=== PATIENT | female | born 1975 | race Caucasian/White ===

== ENCOUNTER 2025-02-06 08:13 | Outpatient (OUT) | payer SELFPAY ==
[2025-02-06 08:56] LABS: White Blood Count 5.8 10^3/uL (4.0-11.0)
[2025-02-06 08:57] LABS: Basophils Absolute Auto 0.1 10^3/uL (0.0-0.1); Basophils Percent Auto 0.9 % (0.2-2.0); Eosinophils Absolute Auto 1.1 10^3/uL (0.0-0.7); Eosinophils Percent Auto 18.8 % (0.9-7.0); Hematocrit 41.8 % (36.0-48.0); Hemoglobin 14.3 g/dL (12.0-16.0); Immature Granulocytes Abs Auto 0.01 10^3/uL (0.00-0.03); Immature Granulocytes Pct Auto 0.2 % (0.0-0.5); Lymphocytes Absolute Auto 1.3 10^3/uL (1.2-3.8); Lymphocytes Percent Auto 21.7 % (20.5-60.0); Mean Corpuscular HGB Conc 34.2 g/dL (29.9-35.2); Mean Corpuscular Hemoglobin 31.1 pg (26.7-34.0); Mean Corpuscular Volume 90.9 fL (81.0-99.0); Mean Platelet Volume 10.8 fL (9.5-13.5); Monocytes Absolute Auto 0.5 10^3/uL (0.3-0.8); Monocytes Percent Auto 8.1 % (1.7-12.0); Neutrophils Absolute Auto 2.9 10^3/uL (1.4-6.5); Neutrophils Percent Auto 50.3 % (43.0-75.0); Platelet Count 206 10^3/uL (150-450); Red Cell Distribution Width 12.9 % (11.0-15.0)
[2025-02-06 09:10] LABS: Alanine Aminotransferase 12 U/L (14-59); Albumin Globulin Ratio 1.2; Albumin Level 3.7 g/dL (3.4-5.0); Alkaline Phosphatase 62 U/L (46-116); Anion Gap 11.1; Aspartate Amino Transferase 18 U/L (15-37); BUN Creatinine Ratio 15.1; Bilirubin Total 0.7 mg/dL (0.2-1.0); Calcium 9.4 mg/dL (8.5-10.1); Carbon Dioxide 26.8 mmol/L (21.0-32.0); Chloride 105 mmol/L (98-107); Chol HDL Ratio 2.9; Cholesterol 161 mg/dL (<=200); Estimated GFR (African America >60 (>=60 mL/min/1.73m^2); Estimated GFR (Non-African Ame >60 (>=60 mL/min/1.73m^2); Glucose 84 mg/dL (74-106); HDL Cholesterol 56 mg/dL (40-60); LDL Cholesterol Calculated 89.4 mg/dL; Potassium 3.9 mmol/L (3.5-5.1); Sodium 139 mmol/L (136-145); Total Protein 6.7 g/dL (6.4-8.2); Triglycerides 78 mg/dL (<=150); VLDL CHOLESTEROL 15.6 mg/dL
[2025-02-06 09:33] LABS: Estimated Average Glucose 97 mg/dL
== END 2025-02-06 08:14 | disposition home or self-care (01) ==
LOC: LAB 08:20
PROVIDERS: PCP Physician Assistant; Visit Provider Physician Assistant
DX: Z00.00 Encounter for general adult medical examination without abnormal findings (principal); E11.9 Type 2 diabetes mellitus without complications; E66.01 Morbid (severe) obesity due to excess calories
CPT/HCPCS: 36415; 80053; 80061; 82043; 82570; 83036; 85025

== ENCOUNTER 2025-03-27 13:45 | Outpatient (REF) | payer OTHER, SELFPAY ==
--- OUTSIDE RECORDS SUMMARY | 2025-03-15 08:00 | XMS_ITS | Encounter Summary ---
Author Organization [facility] Address [address] [place] [address] Care Team Providers Care Publications Designer Name Role Phone Trae Garcia MD Primary Care Provider [phone] Trae Garcia MD Unavailable [phone] Reason for Visit * Reason Comments Obesity Weight check. Starte d Adipex 02/26/23.02/26/23 wt - 3412/04/18 wt - 247Today wt - 230 Med Refill Clobetasol, Triamcin olone, Mounjaro concentration issues She was on Wellbutr in for the lack of concentration, she has not been taking it but not sure if she should be, she has just been redirecting herself. She feels like it made her cry when she was on it. Encounter Details Date Type Department Care Team (Late st Contact Info) Description 03/15/2025 8:00 AM EDT Office Visit [facility] [address] [facility] [address] [place] [address] Pina Bernard PA 112 [facility] 110 [place], [place] [id number] Type 2 diabetes mellitus without complication, without long-term current use of insulin (Primary Dx); Hand eczema; Moderate persistent asthma without complication (CMS/HCC); Morbid (severe) obesity due to excess calories (CMS/HCC); BMI 37.0-37.9, adult; Other allergic rhinitis; Fear of flying (CMS/HCC) Social History Tobacco Use Types Packs/Day Years Used Date Smoking Tobacco: Never Smokeless Tobacco: Never Alcohol Use Standard Drinks/Week Comments Yes 1 (1 standard drink = 0.6 oz pure alcohol) Caffeine intake: 2-3 cups per day coffee, soda Humiliation, Afraid, Rape, and Kick questionnair e Answer Date Recorded Within the last year, have y ou been afraid of your partner or ex-partner? No 09/07/2023 Within the last year, have y ou been humiliated or emotionally abused in other ways by your partner or ex-partner? Yes Within the last year, have y ou been kicked, hit, slapped, or otherwise physically hurt by your partner or ex-partner? No 09/07/2023 Within the last year, have y ou been raped or forced to have any kind of sexual activity by your partner or ex-partner? No 09/07/2023 Social Connection and Isolat ion Panel [NHANES] Answer Date Recorded In a typical week, how many times do you talk on the phone with family, friends, or neighbors? More than three times a week 09/07/2023 How often do you get togethe r with friends or relatives? Once a week 09/07/2023 How often do you attend chur or catholic services? More than 4 times per year 09/07/2023 Do you belong to any clubs o r organizations such as judaism groups, unions, fraternal or athletic groups, or school groups? Yes 09/07/2023 How often do you attend meet ings of the clubs or organizations you belong to? More than 4 times per year 09/07/2023 Are you , , di vorced, , never , or living with a partner? 09/07/2023 AUDIT-C Answer Date Recorded Q1: How often do you have a drink containing alc ohol? Monthly or less 09/07/2023 Q2: How many drinks containi ng alcohol do you have on a typical day when you are drinking? 1 or 2 09/07/2023 Q3: How often do you have si x or more drinks on one occasion? Never 09/07/2023 Overall Financial Resource Strain (CARDIA) Answe r Date Recorded How hard is it for you to pa y for the very basics like food, housing, medical care, and heating? Not very hard 09/07/2023 PHQ-2 Answer Date Recorded Patient Health Questionnaire-2 Score 0 03/15/2025 [facility] - Occupational Stress Questionnaire Answer Date Recorded Do you feel stress - tense, restless, nervous, or anxious, or unable to sleep at night because your mind is troubled all the time - these days? To some extent 09/07/2023 Exercise Vital Sign Answer Date Recorde d On average, how many days pe r week do you engage in moderate to strenuous exercise (like a brisk walk)? 2 days 09/07/2023 On average, how many minutes do you engage in exercise at this level? 30 min 09/07/2023 Hunger Vital Sign Answer Date Recorded Within the past 12 months, y ou worried that your food would run out before you got the money to buy more. Never true 09/07/20 23 Within the past 12 months, t he food you bought just didn't last and you didn't have money to get more. Never true 09/07/2023 PRAPARE - Transportation Answer Date Re corded In the past 12 months, has l ack of transportation kept you from medical appointments or from getting medications? No 08/25 In the past 12 months, has l ack of transportation kept you from meetings, work, or from getting things needed for daily living? No 09/07/2023 Housing Stability Vital Sign Answer David e Recorded In the last 12 months, was t here a time when you were not able to pay the mortgage or rent on time? No 09/07/2023 In the last 12 months, how many places have you lived? 1 09/07/2023 In the last 12 months, was t here a time when you did not have a steady place to sleep or slept in a intermediate (including now)? No 09/07/2023 Comments Unknown Sex and Gender Information Value Date Recorded Sex Assigned at Female 09/07/2023 11:06 PM EST Legal Sex Female 7:23 PM EDT Gender Identity Female 09/07/2023 11:06 PM EST Sexual Orientation Straight 09/07/2023 11 :06 PM EST documented as of this encounter Last Filed Vital Signs Vital Sign Reading Time Taken Comments Blood Pressure 108/82 03/15/2025 8:02 AM EDT Pulse 91 03/15/2025 8:02 AM EDT Temperature - - Respiratory Rate 16 03/15/2025 8:02 AM EDT Oxygen Saturation 99% 03/15/2025 8:02 AM EDT Inhaled Oxygen Concentration - - Weight 105 kg (230 lb 12.8 oz) 03/15/2025 8:02 A M EDT Height 167.6 cm (5' 6 ) 03/15/2025 8:02 AM EDT Body Mass Index 37.25 03/15/2025 8:02 AM EDT documented in this encounter Functional Status * Over the past 2 weeks, how often have you been bothered by any of the following problems? Question Answer Date of Assessment Author Little interest or pleasure in doing things Not at all 03/15/2025 7:55 AM EDT Tiffany Villegas LP N Feeling down, depressed, or hopeless Not at all 03/15/2025 7:55 AM EDT Tiffany Villegas LP N Patient Health Questionnaire -2 Score 0 03/15/2025 7:55 AM EDT Tiffany Villegas LP N documented as of this encounter Progress Notes * ANITA Ordonez - 03/15/2025 8:00 AM EDT Images from the original note were not included. HPI Obesity Additional comments: Weight check. Started Adipex 02/26/23. 02/26/23 wt - 341 11/30/24 wt - 247 Today wt - 230 Med Refill Additional comments: Clobetasol, Triamcinolone, Mounjaro concentration issues Additional comments: She was on Wellbutrin for the lack of concentration, she has not been taking it but not sure if she should be, she has just been redirecting herself. She feels like it made her cry when she was on it. Last edited by ANITA Ordonez on 03/15/2025 8:15 AM. Subjective Patient ID: Helena Valencia is a 49 y.o. female who presents for anxiety. Helena is present today for follow up anxiety. She is currently on Alprazolam and is working wellfor her. She pretty much just uses this when she flies. Has been lifting weights. C/o possible sinus infection. C/o wheezing, yellow drainage, ear discomfort, fatigue, cough sometimes productive, sometimes clear and sometimes thicker phlegm. 02/19/2025 went to and was given Cefdinir. Using her nebulizer lately. Feels like sinus symptoms come and go. Gets eczema in several locations. Having a flare up. Planning to do some hiking in March. Current Outpatient Medications on File Prior to Visit Medication Sig Dispense Refill albuterol (2.5 MG/3ML) 0.083% nebulizer solution INHALE 1 VIAL VIA NEBULIZER 3 TIMES A DAY 300 mL 11 albuterol HFA 90 mcg/act inhaler INHALE 2 PUFFS EVERY 4 (FOUR) HOURS IF NEEDED FOR WHEEZING OR SHORTNESS OF BREATH. 18 g 3 ALPRAZolam (Xanax) 0.5 MG tablet Take 1 tablet (0.5 mg) by mouth as needed at bedtime for anxiety for up to 14 days 14 tablet 0 fluticasone (Flonase) 50 MCG/ACT nasal spray ADMINISTER 1-2 SPRAYS INTO EACH NOSTRIL DAILY SHAKE GENTLY. BEFORE FIRST USE, PRIME PUMP. AFTER USE, CLEAN TIP AND REPLACE CAP. 48 mL 2 ipratropium-albuterol (Duo-Neb) 0.5-2.5 mg/3 mL nebulizer solution Take 3 mL by nebulization every 6 (six) hours if needed for wheezing (Patient not taking: Reported on 03/15/2025) 150 mL 5 phentermine (Adipex-P) 37.5 MG tablet Take 1 tablet (37.5 mg) by mouth in the morning. Take before meals. 30 tablet 0 [DISCONTINUED] buPROPion XL (Wellbutrin XL) 150 MG 24 hr tablet TAKE 1 TABLET BY MOUTH ONCE A DAY *DO NOT CRUSH/CHEW/SPLIT* (Patient not taking: Reported on 02/19/2025) 90 tablet 1 [DISCONTINUED] clobetasol propionate (Clobetasol Propionate E) 0.05 % emollient cream Apply topically 2 (two) times a day 60 g 3 [DISCONTINUED] Dyxuakdqkvk-Pbxumyuuu-Wphtdv (Trelegy Ellipta) 200-62.5-25 MCG/ACT aerosol powder Inhale 1 puff Daily 3 each 3 [DISCONTINUED] methylPREDNISolone (Medrol Dospak) 4 MG tablets Follow schedule on package instructions 21 tablet 0 [DISCONTINUED] Mounjaro 15 MG/0.5ML solution auto-injector INJECT 15 MG UNDER THE SKIN ONE TIME PERWEEK 6 mL 3 [DISCONTINUED] triamcinolone (Kenalog) 0.1 % cream Apply topically 2 (two) times a day 80 g 3 No current facility-administered medications on file prior to visit. I have reviewed and reconciled the history and medication list with the patient today. Allergies Allergen Reactions Erythromycin Base Hives Erythromycin Rash Sulfisoxazole Rash Social History Tobacco Use Smoking status: Never Smokeless tobacco: Never Vaping Use Vaping status: Never Used Substance Use Topics Alcohol use: Yes Alcohol/week: 1.0 standard drink of alcohol Types: 1 Standard drinks or equivalent per week Comment: Caffeine intake: 2-3 cups per day coffee, soda Drug use: Never Family History Problem Relation Name Age of Onset Allergies Mother Asthma Mother Past Medical History: Diagnosis Date Allergies Asthma Diabetes mellitus (CMS/HCC) Eczema Gallbladder disease Herpes zoster without complication Past Surgical History: Procedure Laterality Date SECTION, LOW TRANSVERSE 2010 CHOLECYSTECTOMY 2006 Visit Vitals BP 108/82 Pulse 91 Resp 16 Ht 5' 6 Wt 230 lb 12.8 oz SpO2 99% BMI 37.25 kg/m?? Smoking Status Never BSA 2.21 m?? Review of Systems Constitutional: Negative for chills, fatigue and fever. HENT: Positive for congestion, ear pain and rhinorrhea. Respiratory: Positive for cough and wheezing. Negative for shortness of breath. Cardiovascular: Negative for chest pain, palpitations and leg swelling. Gastrointestinal: Positive for constipation and diarrhea. Negative for abdominal pain, nausea and vomiting. Alternates between loose stools and constipation Skin: Positive for rash. Objective Physical Exam Constitutional: General: She is not in acute distress. Appearance: She is well-developed. She is obese. HENT: Head: Normocephalic and atraumatic. Right Ear: Ear canal normal. A middle ear effusion is present. Left Ear: Ear canal normal. A middle ear effusion is present. Nose: Rhinorrhea present. Rhinorrhea is clear. Right Turbinates: Swollen. Left Turbinates: Swollen. Comments: C/o pressure in ethmoid sinuses, though per pt it varies Mouth/Throat: Mouth: Mucous membranes are moist. Pharynx: Posterior oropharyngeal erythema (Moderate) and postnasal drip present. Eyes: General: No scleral icterus. Conjunctiva/sclera: Conjunctivae normal. Cardiovascular: Rate and Rhythm: Normal rate and regular rhythm. Heart sounds: Normal heart sounds. No murmur heard. Pulmonary: Effort: Pulmonary effort is normal. No respiratory distress. Breath sounds: Normal breath sounds. No wheezing, rhonchi or rales. Comments: Occasional dry cough Lymphadenopathy: Cervical: No cervical adenopathy. Skin: General: Skin is warm and dry. Neurological: General: No focal deficit present. Mental Status: She is alert and oriented to person, place, and time. Psychiatric: Mood and Affect: Mood normal. Behavior: Behavior normal. Assessment/Plan Diagnoses and all orders for this visit: Type 2 diabetes mellitus without complication, without long-term current use of insulin - Tirzepatide (Mounjaro) 15 MG/0.5ML solution auto-injector; Inject 15 mg under the skin 1 (one) time per week Refill provided on the above. HgbA1c on 02/06/2025 was 5.0. Will continue to monitor every 6 months. Hand eczema - triamcinolone (Kenalog) 0.1 % cream; Apply topically in the morning and before bedtime. - clobetasol propionate (Clobetasol Propionate E) 0.05 % emollient cream; Apply topically in the morning and before bedtime. Refills provided on the above for pt to continue to use as needed. Moderate persistent asthma without complication (CMS/HCC) - Afqosijuyzw-Qkwpooayf-Rnellk (Trelegy Ellipta) 200-62.5-25 MCG/ACT aerosol powder ; Inhale 1 puffDaily - montelukast (Singulair) 10 MG tablet; Take 1 tablet (10 mg) by mouth at bedtime - triamcinolone acetonide (Kenalog-40) injection 40 mg Provided patient with Kenalog injection today, 40 mg IM, patient tolerated this well. Will have patient start Singulair as prescribed. Advised if any mood changes she is to stop the medication and contact the office. Reviewed how Singulair works in the body. Morbid (severe) obesity due to excess calories (CMS/HCC) Patient hast lost 111 pounds over the last 2 years. She is doing very well and feels like her clothes continue to fit better. Has incorporated weight lifting. Continue to aim for healthy diet. BMI 37.0-37.9, adult See above. Other allergic rhinitis Continue Flonase as prescribed. If no improvement with the Kenalog and Singulair by Wednesday, pt can contact office and I will send in an antibiotic for her to start. Fear of flying (CMS/HCC) She can continue with Xanax as needed. OARRS report generated and reviewed. Follow up in about 3 months (around 06/15/2025) for Medication Follow Up. documented in this encounter Plan of Treatment Upcoming Encounters Date Type Department Care Team (Late st Contact Info) Description 04/02/2026 9:00 AM EDT Office Visit [facility] [address] [facility] [place] [address] Guero Moore, DO [address] [facility] [place] [address] documented as of this encounter Visit Diagnoses Diagnosis Type 2 diabetes mellitus without complication, without long-term current use of insulin- Primary Hand eczema Contact dermatitis and other eczema, due to unspecified cause Moderate persistent asthma without complication (CMS/HCC) Morbid (severe) obesity due to excess calories (CMS/HCC) BMI 37.0-37.9, adult Other allergic rhinitis Fear of flying (CMS/HCC) documented in this encounter Administered Medications Inactive Administered Medications - up to 3 most recent administrations Medication Order MAR Action Action Date Dose Rate Site triamcinolone acetonide (Kenalog-40) injection 40 mg 40 mg, Intramuscular, Once, On Rachel 03/15/25 at 0845, For 1 doseIndications:Moderate persistent asthma without complication (CMS/HCC) Given 03/15/2025 8:44 AM EDT 40 mg Left Ventrogluteal documented in this encounter Care Teams Publications Designer Relationship Specialty Start Date End Date Trae Garcia MD [address] [facility] [address] [place] [address] PCP - General Internal Medicine 03/24/23 Trae Garcia MD [address] [place] [id number] PCP - Medical [employer] [employer] 10/25/23 10/24/99 documented as of this encounter
--- OUTSIDE RECORDS SUMMARY | 2025-03-27 09:00 | XMS_ITS | Encounter Summary ---
Author Organization [facility] Address [address] [place] [address] Care Team Providers Care Vice President Of Human Resources Name Role Phone Trae Garcia MD Primary Care Provider [phone] Trae Garcia MD Unavailable [phone] Reason for Visit * Reason Comments Well Women Visit Encounter Details Date Type Department Care Team (Late st Contact Info) Description 03/27/2025 9:00 AM EDT Office Visit [facility] [address] [place] [address] Guero Moore DO [address] [place], [facility]11 Well woman exam with routine gynecological exam; Encounter for screening mammogram for malignant neoplasm of breast Social History Tobacco Use Types Packs/Day Years [...] How often do you attend chur or synagogue services? More than 4 times per year 09/07/2023 Do you belong to any clubs o r organizations such as denominational groups, unions, fraternal or athletic groups, or [...] Recorded Patient Health Questionnaire-2 Score 0 03/15/2025 [facility] Health - Occupational Stress [...] place to sleep or slept in a long term (including now)? No 09/07/2023 Comments Unknown Sex and Gender Information Value Date Recorded Sex Assigned at Female 09/07/2023 11:06 PM EST Legal Sex Female 7:23 PM EDT Gender Identity Female 09/07/2023 11:06 PM EST Sexual Orientation Straight 09/07/2023 11 :06 PM EST documented as of this encounter Last Filed Vital Signs Vital Sign Reading Time Taken Comments Blood Pressure 130/80 03/27/2025 9:08 AM EDT Pulse - - Temperature - - Respiratory Rate - - Oxygen Saturation - - Inhaled Oxygen Concentration - - Weight 105 kg (232 lb) 03/27/2025 9:08 AM EDT Height - - Body Mass Index 37.45 03/15/2025 8:02 AM EDT documented in this encounter Progress Notes * Pina Armstrong LPN - 03/27/2025 9:00 AM EDT Reason for Appointment: Patient ID: Helena Valencia is a 49 y.o. female who presents for Well Women Visit Patient presents today for Annual Exam. MEDICATIONS Current Outpatient Medications Medication Instructions albuterol (2.5 MG/3ML) 0.083% nebulizer solution INHALE 1 VIAL VIA NEBULIZER 3 TIMES A DAY albuterol HFA 90 mcg/act inhaler 2 puffs, Inhalation, Every 4 hours PRN ALPRAZolam (XANAX) 0.5 mg, Oral, Nightly PRN clobetasol propionate (Clobetasol Propionate E) 0.05 % emollient cream Topical, 2 times daily fluticasone (Flonase) 50 MCG/ACT nasal spray 1-2 sprays, Each Nostril, Daily, Shake gently. Before first use, prime pump. After use, clean tip and replace cap. Wrqyfskqady-Vjziwejqq-Jbxcrb (Trelegy Ellipta) 200-62.5-25 MCG/ACT aerosol powder 1 puff, Inhalation, Daily montelukast (SINGULAIR) 10 mg, Oral, Nightly Mounjaro 15 mg, Subcutaneous, Weekly phentermine (ADIPEX-P) 37.5 mg, Oral, Daily before breakfast triamcinolone (Kenalog) 0.1 % cream Topical, 2 times daily ALLERGIES Allergies Allergen Reactions Erythromycin Base Hives Erythromycin Rash Sulfisoxazole Rash PROBLEMS Active Ambulatory Problems Diagnosis Date Noted Depression ([facility]) 03/08/2023 Generalized anxiety disorder ([facility]) 03/08/2023 Hand eczema 03/08/2023 Moderate persistent asthma without complication ([facility]) 03/08/2023 Other allergic rhinitis 03/08/2023 Type 2 diabetes mellitus without complication, without long-term current use of insulin 03/08/2023 Morbid (severe) obesity due to excess calories ([facility]) 12/12/2021 Myalgia 02/22/2024 Fear of flying ([facility] 04/21/2024 Shortness of breath 09/12/2024 Ulnar tunnel syndrome, right 09/25/2024 BMI 37.0-37.9, adult 03/15/2025 Resolved Ambulatory Problems Diagnosis Date Noted Morbidly obese ([facility]) 03/08/2023 Sinusitis 03/08/2023 Mild persistent asthma without complication ([facility]) 11/05/2023 BMI 40.0-44.9, adult ([facility]) 01/18/2024 Asthma 04/21/2024 Acute maxillary sinusitis, unspecified 09/12/2024 Bronchitis 09/12/2024 Viral URI with cough 09/12/2024 Past Medical History: Diagnosis Date Allergies Diabetes mellitus (CMS/HCC) Eczema Gallbladder disease Herpes zoster without complication HISTORY PAST MEDICAL HISTORY SOCIAL HISTORY Past Medical History: Diagnosis Date Allergies Asthma Diabetes mellitus (CMS/HCC) Eczema Gallbladder disease Herpes zoster without complication Social History Tobacco Use Smoking status: Never Smokeless tobacco: Never Vaping Use Vaping status: Never Used Substance Use Topics Alcohol use: Yes Alcohol/week: 1.0 standard drink of alcohol Types: 1 Standard drinks or equivalent per week Comment: Caffeine intake: 2-3 cups per day coffee, soda Drug use: Never FAMILY HISTORY Family History Problem Relation Name Age of Onset Allergies Mother Asthma Mother SURGICAL HISTORY Past Surgical History: Procedure Laterality Date SECTION, LOW TRANSVERSE 2011 CHOLECYSTECTOMY 2006 REVIEW OF SYSTEMS Review of Systems: Review of Systems Constitutional: Negative. HENT: Negative. Eyes: Negative. Respiratory: Negative. Cardiovascular: Negative. Gastrointestinal: Negative. Genitourinary: Negative. Musculoskeletal: Negative. Skin: Negative. Neurological: Negative. All other systems reviewed and are negative. Hematological: Negative. Endocrine: Negative. Allergic/Immunologic: Negative. OBJECTIVE Objective: Physical Exam Constitutional: Appearance: Normal appearance. She is well-developed. Genitourinary: Vulva normal. Breasts: Breasts are soft. Right: Normal. Left: Normal. Cardiovascular: Rate and Rhythm: Normal rate and regular rhythm. Pulmonary: Effort: Pulmonary effort is normal. Breath sounds: Normal breath sounds. Abdominal: General: Bowel sounds are normal. There is no distension. Palpations: Abdomen is soft. Tenderness: There is no abdominal tenderness. There is no guarding or rebound. Musculoskeletal: General: No swelling. Normal range of motion. Right lower leg: No edema. Left lower leg: No edema. Neurological: Mental Status: She is alert and oriented to person, place, and time. Skin: General: Skin is warm and dry. Psychiatric: Mood and Affect: Mood normal. Behavior: Behavior normal. Vitals and nursing note reviewed. Exam conducted with a inventory control associate present. Vitals: Estimated body mass index is 37.45 kg/m?? as calculated from the following: Height as of 03/15/25: 5' 6 . Weight as of this encounter: 232 lb. BP: 130/80 No LMP recorded. ASSESSMENT & PLAN ICD-10-CM 1. Well woman exam with routine gynecological exam Z01.419 THIN PREP TIS PAP AND HR HPV DNA 2. Encounter for screening mammogram for malignant neoplasm of breast Z12.31 Annual: Patient presents today for an annual exam. Patient states she is doing well and has no complaints. Pap was obtained without difficulty and patient given mammogram order to have scheduled/obtained. Ptto return for IUD removal and insertion. No orders of the defined types were placed in this encounter. Follow Up: Patient is to return in one year for annual unless needed otherwise. Documented by Pina Armstrong LPN on behalf of: Guero Moore DO documented in this encounter Plan of Treatment Upcoming Encounters Date Type Department Care Team (Late st Contact Info) Description 04/02/2026 9:00 AM EDT Office Visit [facility] [address] [facility] [id number] Guero Moore DO [address] [place] [address] Scheduled Orders Name Type Priority Associated Diagnoses Orde r Schedule THIN PREP TIS PAP AND HR HPV DNA Pathology and Cytology Routine Well woman exam with routine gynecological exam Ordered: 03/27/2025 documented as of this encounter Visit Diagnoses Diagnosis Well woman exam with routine gynecological exam Routine gynecological examination Encounter for screening mammogram for malignant neoplasm of breast documented in this encounter Care Teams Vice President Of Human Resources Relationship Specialty Start Date End Date Trae Garcia MD [address] [facility] [address] [place] [address] PCP - General Internal Medicine 03/24/23 Trae Garcia MD [address] [facility] [address] [place] [address] PCP - Medical [place] [employer] 10/25/23 10/24/99 documented as of this encounter
--- OUTSIDE RECORDS SUMMARY | 2025-03-27 13:47 | XMS_ITS | Encounter Summary ---
Author Organization [facility] Address [address] [place] [address] Care Team Providers Care Testing And Regulating Chief Name Role Phone Trae Garcia MD Primary Care Provider [phone] Trae Garcia MD Unavailable [phone] Encounter Details Date Type Department Care Team (Late st Contact Info) Description 08/07/2024 Abstract [facility] [address] [facility] 110 [place] [id number] Trae Garcia MD [address] [facility] 110 [place], [place] [id number] Social History Tobacco Use Types Packs/Day Years [...] 09/07/2023 How often do you attend chur ch or gnosticism services? More than 4 times per year 09/07/2023 Do you belong to any clubs o r organizations such as mormon groups, unions, fraternal or athletic groups, or [...] care, and heating? Not very hard 09/07/2023 [facility] - Occupational Stress [...] place to sleep or slept in a halfway (including now)? No 09/07/2023 Comments Unknown Sex and Gender Information Value Date Recorded Sex Assigned at Female 09/07/2023 11:06 PM EST Legal Sex Female 7:23 PM EDT Gender Identity Female 09/07/2023 11:06 PM EST Sexual Orientation Straight 09/07/2023 11 :06 PM EST documented as of this encounter Plan of Treatment Upcoming Encounters Date Type Department Care Team (Late st Contact Info) Description 04/02/2026 9:00 AM EDT Office Visit [facility] [address] [address] Guero Moore, DO [address] [facility] [place] [address] documented as of this encounter Visit Diagnoses Not on filedocumented in this encounter Care Teams Testing And Regulating Chief Relationship Specialty Start Date End Date Trae Garcia MD [address] [facility] [address] [place] [address] PCP - General Internal Medicine 03/24/23 Trae Garcia MD [address] [facility] [address] [place] [id number] PCP - Medical [place] [employer] 10/25/23 10/24/99 documented as of this encounter
--- OUTSIDE RECORDS SUMMARY | 2025-03-27 13:47 | XMS_ITS | Encounter Summary ---
Author Organization [facility] Address [address] [place] [address] Care Team Providers Care Partition Assembler Name Role Phone Trae Garcia MD Primary Care Provider [phone] Trae Garcia MD Unavailable [phone] Encounter Details Date Type Department Care Team (Late st Contact Info) Description 07/24/2024 Abstract [facility] [address] [facility] 110 [place] [address] Trae Garcia MD [address] [facility] 110 [place], [place] [id number] Social History Tobacco Use Types Packs/Day Years [...] often do you attend chur ch or shinto services? More than 4 times per year 09/07/2023 Do you belong to any clubs o r organizations such as mandaeism groups, unions, fraternal or athletic groups, or [...] care, and heating? Not very hard 09/07/2023 [facility] - Occupational [...] place to sleep or slept in a fci (including now)? No 09/07/2023 Comments Unknown Sex [...] EDT Office Visit [facility] [address] [facility] [place] [address] Guero Moore, DO [address] [facility] [place] [address] documented as of this encounter Visit Diagnoses Not on filedocumented in this encounter Care Teams Partition Assembler Relationship Specialty Start Date End Date Trae Garcia MD [address] [facility] [address] [place] [address] PCP - General Internal Medicine 03/24/23 Trae Garcia MD [address] [facility] [address] [place] [id number] PCP - Medical [place] [employer] 10/25/23 10/24/99 documented as of this encounter
--- OUTSIDE RECORDS SUMMARY | 2025-03-27 13:47 | XMS_ITS | Encounter Summary ---
Author Organization [facility] Address [address] [place] [address] Care Team Providers Care Soccer Player Name Role Phone Trae Garcia MD Primary Care Provider Trae Garcia MD Unavailable [phone] Encounter Details Date Type Department Care Team (Late st Contact Info) Description 07/24/2024 Abstract [facility] [address] [facility] 110 [place] [id number] Trae Garcia MD [address] [facility] 110 [place], [place] [id number] Social History Tobacco Use Types Packs/Day Years [...] often do you attend chur ch or confucianist services? More than 4 times per year 09/07/2023 Do you belong to any clubs o r organizations such as sabianism groups, unions, fraternal or athletic groups, or [...] care, and heating? Not very hard 09/07/2023 [facility] - Occupational [...] place to sleep or slept in a correction (including now)? No 09/07/2023 Comments Unknown Sex [...] EDT Office Visit [facility] [address] [facility] [place] [address] Guero Moore, DO [address] [facility] [place] [address] documented as of this encounter Visit Diagnoses Not on filedocumented in this encounter Care Teams Soccer Player Relationship Specialty Start Date End Date Trae Garcia MD [address] [facility] [address] [place] [address] PCP - General Internal Medicine 03/24/23 Trae Garcia MD [address] [facility] [address] [place] [id number] PCP - Medical [place] [employer] 10/25/23 10/24/99 documented as of this encounter
--- OUTSIDE RECORDS SUMMARY | 2025-03-27 13:48 | XMS_ITS | Clinical Summary ---
Author Organization [facility] Healthcare Address [address] [place] [address] Care Team Providers Care Helmet Hat Brim Cutter Name Role Phone Trae Garcia MD Primary Care Provider [phone] Trae Garcia MD Unavailable [phone] Allergies Active Allergy Reactions Criticality Noted Date Comments Erythromycin Rash Low 03/08/2023 Erythromycin Base Hives 03/12/2024 Sulfisoxazole Rash Low 03/08/2023 Medications fluticasone (Flonase) 50 MCG/ACT nasal sprayIndications: Other allergic rhinitis ADMINISTER 1-2 SPRAYS INTO EACH NOSTRIL DAILY SHAKE GENTLY. BEFORE FIRST USE, PRIME PUMP. AFTER USE, CLEAN TIP AND REPLACE CAP. 48 mL 2 024 2024 Active ALPRAZolam (Xanax) 0.5 MG tabletIndications :Fear of flying ([facility]),General ized anxiety disorder ([facility]) Take 1 tablet (0.5 mg) by mouth as needed at bedtime for anxiety for up to 14 days 14 tablet 025 Active albuterol (2.5 MG/3ML) 0.083% nebulizer solutionIndicatio ns:Persistent asthma with acute exacerbation, unspecified asthma severity ([facility]) INHALE 1 VIAL VIA NEBULIZER 3 TIMES A DAY 300 mL 11 025 Active albuterol HFA 90 mcg/act inhalerIndication s:Mild persistent asthma without complication ([facility]) INHALE 2 PUFFS EVERY 4 (FOUR) HOURS IF NEEDED FOR WHEEZING OR SHORTNESS OF BREATH. 18 g 3 025 Active phentermine (Adipex-P) 37.5 MG tabletIndications :Morbid (severe) obesity due to excess calories (CMS/HCC),Type 2 diabetes mellitus without complication, without long-term current use of insulin Take 1 tablet (37.5 mg) by mouth in the morning. Take before meals. 30 tablet 025 2024 Active triamcinolone (Kenalog) 0.1 % creamIndications: Hand eczema Apply topically in the morning and before bedtime. 80 g 3 025 Active clobetasol propionate (Clobetasol Propionate E) 0.05 % emollient creamIndications: Hand eczema Apply topically in the morning and before bedtime. 60 g 025 Active Fluticasone-Umecl idin-Vilant (Trelegy Ellipta) 200-62.5-25 MCG/ACT aerosol powderIndications :Moderate persistent asthma without complication (CMS/HCC) Inhale 1 puff Daily 3 each 3 025 Active montelukast (Singulair) 10 MG tabletIndications :Moderate persistent asthma without complication (CMS/HCC) Take 1 tablet (10 mg) by mouth at bedtime 90 tablet 025 Active Tirzepatide (Mounjaro) 15 MG/0.5ML solution auto-injectorIndi cations:Type 2 diabetes mellitus without complication, without long-term current use of insulin Inject 15 mg under the skin 1 (one) time per week 6 mL 3 025 Active ipratropium-albut charles (Duo-Neb) 0.5-2.5 mg/3 mL nebulizer solutionIndicatio ns:Moderate persistent asthma without complication (CMS/HCC) Take 3 mL by nebulization every 6 (six) hours if needed for wheezing 150 mL 5 024 2024 Discontinued Fluticasone-Umecl idin-Vilant (Trelegy Ellipta) 200-62.5-25 MCG/ACT aerosol powderIndications :Moderate persistent asthma without complication (CMS/HCC) Inhale 1 puff Daily 3 each 3 024 2024 Discontinued(R eorder) buPROPion XL (Wellbutrin XL) 150 MG 24 hr tabletIndications :Generalized anxiety disorder (CMS/HCC) TAKE 1 TABLET BY MOUTH ONCE A DAY *DO NOT CRUSH/CHEW/SPLI T* 90 tablet 1 024 2024 Discontinued(S renetta effects) Mounjaro 15 MG/0.5ML solution auto-injectorIndi cations:Type 2 diabetes mellitus without complication, without long-term current use of insulin INJECT 15 MG UNDER THE SKIN ONE TIME PER WEEK 6 mL 3 2024 Discontinued(R eorder) clobetasol propionate (Clobetasol Propionate E) 0.05 % emollient creamIndications: Hand eczema Apply topically 2 (two) times a day 60 g 3 2024 Discontinued(R eorder) triamcinolone (Kenalog) 0.1 % creamIndications: Hand eczema Apply topically 2 (two) times a day 80 g 3 2024 Discontinued(R eorder) phentermine (Adipex-P) 37.5 MG tabletIndications :Morbid (severe) obesity due to excess calories (CMS/HCC),Type 2 diabetes mellitus without complication, without long-term current use of insulin Take 1 tablet (37.5 mg) by mouth in the morning. Take before meals. 30 tablet 2024 Discontinued(R eorder) methylPREDNISolon e (Medrol Dospak) 4 MG tabletsIndication s:Mild persistent asthma, unspecified whether complicated (CMS/HCC) Follow schedule on package instructions 21 tablet 2024 Discontinued(T herapy completed) cefdinir (Omnicef) 300 MG capsuleIndication s:Acute rhinosinusitis Take 1 capsule (300 mg) by mouth every 12 (twelve) hours for 10 days 20 capsule 2024 phentermine (Adipex-P) 37.5 MG tabletIndications :Morbid (severe) obesity due to excess calories (CMS/HCC),Type 2 diabetes mellitus without complication, without long-term current use of insulin Take 1 tablet (37.5 mg) by mouth in the morning. Take before meals. 30 tablet 025 2024 Discontinued(R eorder) Tirzepatide (Mounjaro) 15 MG/0.5ML solution auto-injectorIndi cations:Type 2 diabetes mellitus without complication, without long-term current use of insulin Inject 15 mg under the skin 1 (one) time per week 6 mL 3 025 2024 Discontinued(R eorder) Hospital, Clinic, or Other Facility Administered Medication Ordered Dose Route Frequency Start Date End Date Status triamcinolone acetonide (Kenalog-40) injection 40 mgIndications:Moderate persistent asthma without complication (CMS/HCC) 40 mg IM Once 03/15/2025 03/15/2025 En ded Active Problems Problem Noted Date Diagnosed Date BMI 37.0-37.9, adult 03/15/2025 Ulnar tunnel syndrome, right 09/25/2024 Shortness of breath 09/12/2024 Fear of flying 04/21/2024 Myalgia 02/22/2024 Depression 03/08/2023 Generalized anxiety disorder 03/08/2023 Hand eczema 03/08/2023 Moderate persistent asthma without complication 03/08/2023 Other allergic rhinitis 03/08/2023 Type 2 diabetes mellitus wit hout complication, without long-term current use of insulin 03/08/2023 Morbid (severe) obesity due to excess calories 0 12/12/2021 Resolved Problems Problem Noted Date Diagnosed Date Resolved Date Acute maxillary sinusitis, unspecified 09/12/2024 09/25/2024 Bronchitis 09/12/2024 09/25/2024 Viral URI with cough 09/12/2024 024 Asthma 04/21/2024 04/21/2024 BMI 40.0-44.9, adult 01/18/2024 025 Mild persistent asthma without complication 11/05/2023 04/21/2024 Morbidly obese 03/08/2023 09/08/2023 Sinusitis 03/08/2023 09/08/2023 Encounters Date Type Department Care Team Description 03/27/2025 9:00 AM EDT Office Visit [facility] [address] [place] [address] [place] [address] Guero Moore, Well woman exam with routine gynecological exam; Encounter for screening mammogram for malignant neoplasm of breast 03/27/2025 Bamboo flowsheet [facility] [address] [place] [address] [place] [address] Guero Moore DO 03/20/2025 Refill [facility] [address] [facility] [address] [place] [address] Makayla Houston MA Type 2 diabetes mellitus without complication, without long-term current use of insulin 03/15/2025 8:00 AM EDT Office Visit [facility] [address] [facility] [address] [place] [address] Pina Bernard PA Type 2 diabetes mellitus without complication, without long-term current use of insulin (Primary Dx); Hand eczema; Moderate persistent asthma without complication (CMS/HCC); Morbid (severe) obesity due to excess calories (CMS/HCC); BMI 37.0-37.9, adult; Other allergic rhinitis; Fear of flying (CMS/HCC) 03/15/2025 Bamboo flowsheet [facility] [address] [facility] [address] [place] [address] Pina Bernard PA 03/15/2025 Travel 03/06/2025 Refill [facility] [address] [facility] [address] [place] [address] Pina Bernard PA Morbid (severe) obesity due to excess calories (CMS/HCC); Type 2 diabetes mellitus without complication, without long-term current use of insulin 03/06/2025 Abstract [facility] [address] [facility] [address] [place] [address] Trae Garcia MD 03/05/2025 Telephone [facility] [address] [facility] [address] [place] [address] Tiffany Villegas LPN 03/05/2025 [address] [facility] [address] [facility] [address] [place] [address] Pina Bernard PA Morbid (severe) obesity due to excess calories (CMS/HCC); Type 2 diabetes mellitus without complication, without long-term current use of insulin 02/19/2025 3:30 PM EDT Office Visit [facility] [address] [place] [phone] Annemarie Rosales, AKOSUA Acute rhinosinusitis (Primary Dx); Mild persistent asthma, unspecified whether complicated (CMS/HCC) 02/19/2025 Bamboo flowsheet [facility] [address] [place] [phone] Annemarie Rosales, WINDOW REPAIRER 02/19/2025 Travel 02/16/2025 Refill [facility] [address] [place] [address] Pina Bernard PA Mild persistent asthma without complication (CMS/HCC) 02/16/2025 Refill [facility] [address] [place] [address] Trae Garcia MD Persistent asthma with acute exacerbation, unspecified asthma severity (CMS/HCC) 02/06/2025 Abstract [facility] [address] [place] [address] Trae Garcia MD 02/06/2025 Abstract [facility] [address] [place] [address] Trae Garcia MD 02/06/2025 Results Follow-Up [facility] [address] [place] [address] Pina Bernard PA 02/06/2025 Clinisync Result Encounter [facility] External Department Unsolicited Pina Bernard PA 02/02/2025 Refill [facility] [address] [place] [address] Tiffany Villegas LPN Morbid (severe) obesity due to excess calories (CMS/HCC); Type 2 diabetes mellitus without complication, without long-term current use of insulin 01/08/2025 Telephone [facility] [address] [place] [address] Pina Bernard PA 01/03/2025 Refill [facility] [address] [place] [address] Christen Perez LPN Morbid (severe) obesity due to excess calories (CMS/HCC); Type 2 diabetes mellitus without complication, without long-term current use of insulin (CMS/HCC) from Last 3 Months Immunizations Immunization Administration Dates Next Due Influenza, Injectable, MDCK, preservative free 08/15/2024 Influenza, injectable, quadr ivalent, preservative free 06/29/2023,06/30/2022,07/22/2021 Influenza, seasonal, intrade rmal, preservative free 08/05/2016,09/13/2014 Pneumococcal Polysaccharide PPSV23 10/27/2021 Tdap 09/29/2014 Family History Medical History Relation Name Comments Allergies Mother Asthma Mother Relation Name Status Comments Father Alive Mother Alive Other Alive spouse Paternal Grandfather Alive Paternal Grandmother Alive Sibling Alive Son Alive 1 son Social History Tobacco Use Types Packs/Day Years Used Date Smoking Tobacco: Never Smokeless Tobacco: Never Tobacco Cessation:Counseling Given: Not Answered Alcohol Use Standard Drinks/Week Comments Yes 1 [...] often do you attend chur ch or mormon services? More than 4 times per year 09/07/2023 Do you belong to any clubs o r organizations such as zoroastrianism groups, unions, fraternal or athletic groups, or [...] Recorded Patient Health Questionnaire-2 Score 0 03/15/2025 [facility] - [...] place to sleep or slept in a jail (including now)? No 09/07/2023 Comments Unknown Sex and Gender Information Value Date Recorded Sex Assigned at Female 09/07/2023 11:06 PM EST Legal Sex Female 7:23 PM EDT Gender Identity Female 09/07/2023 11:06 PM EST Sexual Orientation Straight 09/07/2023 11 :06 PM EST Last Filed Vital Signs Vital Sign Reading Time Taken Comments Blood Pressure 130/80 03/27/2025 9:08 AM EDT Pulse 91 03/15/2025 8:02 AM EDT Temperature 36.6 C (97.8 F) 02/19/2025 3:44 PM EDT Respiratory Rate 16 03/15/2025 8:02 AM EDT Oxygen Saturation 99% 03/15/2025 8:02 AM EDT Inhaled Oxygen Concentration - - Weight 105 kg (232 lb) 03/27/2025 9:08 AM EDT Height 167.6 cm (5' 6 ) 03/15/2025 8:02 AM EDT Body Mass Index 37.45 03/15/2025 8:02 AM EDT Plan of Treatment Upcoming Encounters Date Type Department Care Team (Late st Contact Info) Description 04/02/2026 9:00 AM EDT Office Visit [facility] [address] [facility] [place] [address] Guero Moore, DO [address] [place], [place] [id number] Health Maintenance Due Date Last Done Comments CT Colonography 1977 Colonoscopy 1977 Colorectal Cancer Screening 1977 FIT-DNA 1977 FIT 1977 FOBT 1975 Sigmoidoscopy 1977 Diabetes: Retinopathy Screening 1987 Pap Smear 1998 Cervical Cancer Screening 2007 HPV/Cotest 2007 Diabetes: Hemoglobin A1C 05/08/2025 025, 04/21/2024, 09/08/2023, Additional history exists Mammogram 10/20/2025 10/20/2024 Diabetes: Urine Protein Screening 03/15/2026 03/15/2025, 12/20/2023, 11/25/2022, Additional history exists Influenza Vaccine Completed 08/15/2024, , 06/30/2022, Additional history exists Procedures Procedure Name Priority Date/Time Associated Diagnosis Comments MICROALBUMIN / CREATININE URINE RATIO Routine 03/15/2025 1:42 PM EDT Type 2 diabetes mellitus without complication, without long-term current use of insulin MLR HEMOGLOBIN A1C Routine 02/06/2025 8: 20 AM EDT ALL LIPID PROFILE (FASTING) Routine 02/06/2025 8:20 AM EDT [facility] CMP (CMP) (FOR REMOTE [facility] USE) Routine 02/06/2025 8:20 AM EDT ALL CBC WITH AUTO DIFF Routine 8:20 AM EDT BI MAMMOGRAM SCREENING TOMOSYNTHESIS BILATERAL 10/20/2024 2:47 PM EST POCT GLYCOSYLATED HEMOGLOBIN (HGB A1C) Routine 04/21/2024 8:54 AM EDT Type 2 diabetes mellitus without complication, without long-term current use of insulin ([facility]) from Last 3 Months or Most Recently Relevant to Health Maintenance Results * (ABNORMAL) Microalbumin / creatinine, urine ratio (03/15/2025 1:42 PM EDT) CREATININE, RANDOM URINE 284(H) 20 - 275 mg/dL [facility] ALBUMIN, URINE 2.5 See Note: mg/dL [facility] Comment: Reference Range: Reference Range Not established ALBUMIN/CREATININE RATIO, RANDOM URINE 9 <30 mg/g creat [facility] Comment: The ADA defines abnormalities in albumin excretion as follows: Albuminuria Category Result (mg/g creatinine) Normal to Mildly increased <30 Moderately increased 30-299 Severely increased > OR = 300 The ADA recommends that at least two of three specimens collected within a 3-6 month period be abnormal before considering a patient to be within a diagnostic category. Urine Urine specimen obtained by clean catch procedure / Unknown 03/15/2025 1:42 PM EDT 03/15/2025 1:43 PM EDT Narrative Resulting Agency Comment Performing Organization Information Site ID: QPT Name: [employer] [facility] Address: [address] [place] [address], [address] [place] [id number] Director: Slade Payan MD Pina HOWARD LAB URINE ORDERABLES Final Res ult [facility] * MLR HEMOGLOBIN A1C (02/06/2025 8:20 AM EDT) Pathologist [facility] GLYCOHEMOGLOBIN A1C 5.0 4.5 - 6.2 % [facility] Comment: ADA RECOMMENDED LIMIT 4.0 - 6.0 ADA THERAPEUTIC TARGET < 7.0 ACTION SUGGESTED > 7.0 ESTIMATED AVERAGE GLUCOSE 97 mg/dL [facility] 02/06/2025 8:20 AM EDT 02/06/2025 8:47 AM EDT Narrative [facility] - 02/06/2025 9:34 AM EDT Pina HOWARD [facility] Final Result Performing Organization Address City/[facility]/ZIP Co de Phone Number CLINISYNC TB * (ABNORMAL) [facility] CMP (CMP) (FOR REMOTE [facility] USE) (02/06/2025 8:20 AM EDT) Pathologist [facility] SODIUM 139 136 - 145 mmol/L TB POTASSIUM 3.9 3.5 - 5.1 mmol/L [facility]H CHLORIDE 105 98 - 107 mmol/L TB[facility] CARBON DIOXIDE 26.8 21.0 - 32.0 mmol/L [facility] ANION GAP 11.1 [facility] GLUCOSE 84 74 - 106 mg/dL [facility] BLOOD UREA NITROGEN 13.0 7.0 - 18.0 mg/dL [facility] CREATININE 0.86 0.55 - 1.02 mg/dL TBH TBH EGFR-AF SCOTTISH >60 >=60 mL/min/1. 73m 2 TBH TBH EGFR-NON AF SCOTTISH >60 >=60 mL/min/1. 73m 2 TBH BUN CREATININE RATIO 15.1 TBH CALCIUM 9.4 8.5 - 10.1 mg/dL [facility] BILIRUBIN TOTAL 0.7 0.2 - 1.0 mg/dL [facility] ASPARTATE AMINO TRANSFERASE 18 15 - 37 U/L TBH ALANINE AMINOTRANSFERASE 12(L) 14 - 59 U/L [facility] ALKALINE PHOSPHATASE 62 46 - 116 U/L [facility] TOTAL PROTEIN 6.7 6.4 - 8.2 g/dL [facility] ALBUMIN LEVEL 3.7 3.4 - 5.0 g/dL [facility] GLOBULIN 3.0 g/dL [facility]H ALBUMIN GLOBULIN RATIO 1.2 [facility] 02/06/2025 8:20 AM EDT 02/06/2025 8:47 AM EDT Narrative CLINISYNC - 02/06/2025 9:11 AM EDT us Pina HOWARD CLINIS[facility] Final Result [facility] * ALL LIPID PROFILE (FASTING) (02/06/2025 8:20 AM EDT) TRIGLYCERIDES 78 <=150 mg/dL TB[facility] CHOLESTEROL 161 <=200 mg/dL TBH HDL CHOLESTEROL 56 40 - 60 mg/dL TB Comment: > or =60 mg/dl - LOW CARDIOVASCULAR RISK <40 mg/dl - HIGH CARDIOVASCULAR RISK LDL CHOLESTEROL CALCULATED 89.4 mg/dL TB Comment: <100 mg/dl OPTIMAL 100-129 mg/dl NEAR OR ABOVE OPTIMAL 130-159 mg/dl BORDERLINE HIGH 160-189 mg/dl HIGH >190 mg/dl VERY HIGH VLDL CHOLESTEROL 15.6 mg/dL TBH CHOL HDL RATIO 2.9 TBH Comment: 3.3 - 4.4 LOW RISK 4.4 - 7.1 AVERAGE RISK 7.1 - 11.0 MODERATE RISK >11.0 HIGH RISK 02/06/2025 8:20 AM EDT 02/06/2025 8:47 AM EDT Narrative CLINISYNC - 02/06/2025 9:11 AM EDT us Pina HOWARD CLINISYNC Final Result [facility] * (ABNORMAL) ALL CBC WITH AUTO DIFF (02/06/2025 8:20 AM EDT) TBH WBC 5.8 4.0 - 11.0 10 3/uL TBH TBH RBC 4.60 4.20 - 5.40 10 6/uL TBH TBH HGB 14.3 12.0 - 16.0 g/dL TBH TBH HCT 41.8 36.0 - 48.0 % TBH TBH MCV 90.9 81.0 - 99.0 fL TBH TBH MCH 31.1 26.7 - 34.0 pg TBH TBH MCHC 34.2 29.9 - 35.2 g/dL TBH TBH RDW 12.9 11.0 - 15.0 % TBH TBH PLT 206 150 - 450 10 3/uL TBH TBH MPV 10.8 9.5 - 13.5 fL TBH NEUTROPHILS PERCENT AUTO 50.3 43.0 - 75.0 % TBH LYMPHOCYTES PERCENT AUTO 21.7 20.5 - 60.0 % TBH MONOCYTES PERCENT AUTO 8.1 1.7 - 12.0 % TBH TBH EO % 18.8(H) 0.9 - 7.0 % TBH BASOPHILS PERCENT AUTO 0.9 0.2 - 2.0 % TBH IMMATURE GRANULOCYTES PCT AUTO 0.2 0.0 - 0.5 % TBH NEUTROPHILS ABSOLUTE AUTO 2.9 1.4 - 6.5 10 3/uL TBH LYMPHOCYTES ABSOLUTE AUTO 1.3 1.2 - 3.8 10 3/uL TBH MONOCYTES ABSOLUTE AUTO 0.5 0.3 - 0.8 10 3/uL TBH TBH EO # 1.1(H) 0.0 - 0.7 10 3/uL TBH BASOPHILS ABSOLUTE AUTO 0.1 0.0 - 0.1 10 3/uL TBH IMMATURE GRANULOCYTES ABS AUTO 0.01 0.00 - 0.03 10 3/uL TBH 02/06/2025 8:20 AM EDT 02/06/2025 8:47 AM EDT Narrative CLINISYNC - 02/06/2025 8:57 AM EDT us Pina HOWARD CLINISYMARIUSZ Final Result [facility] * Bilateral screening mammogram with tomosynthesis (10/20/2024 2:47 PM EST) Anatomical Region Laterality Modality Breast Bilateral Mammography 10/20/2024 2:47 PM EST Impressions 10/20/2024 3:15 PM EST NO MAMMOGRAPHIC EVIDENCE OF MALIGNANCY. ROUTINE FOLLOW-UP IS RECOMMENDED IN ONE YEAR. RESULT CODE: 2 Benign Findings(s) DENSITY CODE: 2 (approximately 25-50% glandular) FOLLOW UP: 1YR The false-negative rate of mammography is approximately 10-percent. Management of a palpable abnormality must be based on clinical grounds. Patient was entered into a reminder system with a target due date for the next mammogram. Impression dictated by: Daryn Lopez M.D.10/20/2024 3:12 PM Dictation Location: [facility] Transcribed By: [facility] 10/20/24 1512 Dictated By: Daryn Lopez II, MD 10/20/24 1447 Signed By: <Electronically signed by Daryn Lopez II, MD in OV> 10/20/24 1512 Narrative 10/20/2024 3:[address] [facility] [place] [address] Mammography Report Signed Patient: Helena Feliz MR# : [id number] : 1975 Acct:[id number] Age/Sex: 48 / F ADM Date: 10/20/24 Loc: [place] [facility]: [facility]: Referral Self Copies to: Pina Bernard PA-C SELF,REFERRAL Ordering Provider: SELF,REFERRAL Date of Service: 10/20/24 MM/MM screening mammo BI w/CAD: SCREENING CLINICAL DATA: Screening for malignancy. BILATERAL SCREENING MAMMOGRAMS - FULL FIELD DIGITAL WITH TOMOSYNTHESIS AND CAD Tomosynthesis craniocaudal and mediolateral oblique views of both breasts were obtained using low- dose digital technique. This is a baseline study. This examination was reviewed with the aid of CAD. There are scattered fibroglandular densities. Benign-appearing lymph nodes are noted along the chest wall bilaterally. Benign-appearing calcifications are present. There are no dominant masses, typically malignant calcifications or architectural distortion. MM/MM screening mammo BI w/CAD Procedure Note Daryn Lopez MD - 10/20/2024 [facility] Main [place] [address] [place] [address] Mammography Report Signed Patient: Helena Feliz LMR# : [id number] : 1975Acct:[id number] Age/Sex: 48 / FADM Date: 10/20/24 Loc: [place] Room:Type: [facility] Attending Dr: Referral Self Copies to: Pina Bernard PA-C SELF,REFERRAL Ordering Provider: SELF,REFERRAL Date of Service: 10/20/24 MM/MM screening mammo BI w/CAD: SCREENING CLINICAL DATA: Screening for malignancy. BILATERAL SCREENING MAMMOGRAMS - FULL FIELD DIGITAL WITH TOMOSYNTHESIS ANDCAD Tomosynthesis craniocaudal and mediolateral oblique views of both breastswere obtained using low- dose digital technique. This is a baseline study. This examination wasreviewed with the aid of CAD. There are scattered fibroglandular densities. Benign-appearing lymph nodesare noted along the chest wall bilaterally. Benign-appearing calcifications are present. There areno dominant masses, typically malignant calcifications or architectural distortion. MM/MM screening mammo BI w/CAD IMPRESSION: NO MAMMOGRAPHIC EVIDENCE OF MALIGNANCY. ROUTINE FOLLOW-UP IS RECOMMENDED IN ONE YEAR. RESULT CODE: 2 Benign Findings(s) DENSITY CODE: 2 (approximately 25-50% glandular) FOLLOW UP: 1YR The false-negative rate of mammography is approximately 10-percent. Management of a palpable abnormality must be based on clinical grounds. Patient was entered into a reminder system with a target due date for thenext mammogram. Impression dictated by: Daryn Lopez M.D.10/20/2024 3:12 PM Dictation Location: [facility] Transcribed By: PINKY 10/20/24 1512 Dictated By: Daryn Lopez II, MD 10/20/24 1447 Signed By: <Electronically signed by Daryn Lopez II, MD inOV> 10/20/24 1512 us Generic External Data Provider IMG BI PROCEDURES Final Result * (ABNORMAL) POCT glycosylated hemoglobin (Hb A1C) docked device (04/21/2024 8:54 AM EDT) Hemoglobin A1C 5.7 Blood Venous blood specimen / Unknown 04/21/2024 8:54 AM EDT us Pina HOWARD POINT OF CARE TEST ENTER/EDIT ORDERABLES Final Result from Last 3 Months or Most Recently Relevant to Health Maintenance Insurance [employer] Care Teams Helmet Hat Brim Cutter Relationship Specialty Start Date End Date Trae Garcia MD [address] [facility] [address] [place] [address] PCP - General Internal Medicine 03/24/23 Trae Garcia MD [address] [facility] [address] [place] [address] PCP - Medical [employer] 10/25/23 10/24/99
--- OUTSIDE RECORDS SUMMARY | 2025-03-27 13:48 | XMS_ITS | Encounter Summary ---
Author Organization [facility] Address [address] [place] [address] Care Team Providers Care Lining Printer Name Role Phone Trae Garcia MD Primary Care Provider [phone] Trae Garcia MD Unavailable [phone] Encounter Details Date Type Department Care Team (Late st Contact Info) Description 03/27/2025 Bamboo flowsheet [facility] [address] [place] [address] Guero Moore, DO [address] [place]oh[place], [facility] Social History Tobacco Use Types Packs/Day Years [...] often do you attend chur ch or yarsanism services? More than 4 times per year 09/07/2023 Do you belong to any clubs o r organizations such as nondenominational groups, unions, fraternal or athletic groups, or [...] Recorded Patient Health Questionnaire-2 Score 0 03/15/2025 [facility] Answer Date Recorded [...] money to buy more. Never true 09/07/20 Within the past 12 months, t he [...] place to sleep or slept in a mcfp (including now)? No 09/07/2023 Comments Unknown Sex [...] EDT Office Visit [facility] [address] [facility] [place] [address] Guero Moore, DO [address] [facility] [address] [place] [place], [place] [address] documented as of this encounter Visit Diagnoses Not on filedocumented in this encounter Care Teams Lining Printer Relationship Specialty Start Date End Date Trae Garcia MD [address] [facility] [address] [place] [address] PCP - General Internal Medicine 03/24/23 Trae Garcia MD [address] [address] PCP - Medical [place] Commercial 10/25/23 10/24/99 documented as of this encounter
--- OUTSIDE RECORDS SUMMARY | 2025-03-27 13:49 | XMS_ITS | Encounter Summary ---
Author Organization [facility] Address [address] [place] [address] Care Team Providers Care Controlled Area Checker Name Role Phone Trae Garcia MD Primary Care Provider [phone] Trae Garcia MD Unavailable [phone] Encounter Details Date Type Department Care Team (Late st Contact Info) Description 02/06/2025 Abstract [facility] [address] [facility] 110 [place] [address] Trae Garcia MD [address] [facility] 110 [place], [place] [address] Social History Tobacco Use Types Packs/Day Years [...] often do you attend chur ch or rastafarian services? More than 4 times per year 09/07/2023 Do you belong to any clubs o r organizations such as jew groups, unions, fraternal or athletic groups, or [...] care, and heating? Not very hard 09/07/2023 [facility] Occupat ional Health - Occupational [...] place to sleep or slept in a fdc (including now)? No 09/07/2023 Comments Unknown Sex [...] EDT Office Visit [facility] [address] [place] [address] Guero Moore, DO [address] [facility] [place] [address] documented as of this encounter Visit Diagnoses Not on filedocumented in this encounter Care Teams Controlled Area Checker Relationship Specialty Start Date End Date Trae Garcia MD [address] [facility] [address] [place] [address] PCP - General Internal Medicine 03/24/23 Trae Garcia MD [address] [facility] [address] [place] [id number] PCP - Medical [place] Commercial 10/25/23 10/24/99 documented as of this encounter
--- OUTSIDE RECORDS SUMMARY | 2025-03-27 13:49 | XMS_ITS | Encounter Summary ---
Author Organization [facility] Address [address] [place] [address] Care Team Providers Care Team Leader Name Role Phone Trae Garcia MD Primary Care Provider [phone] Trae Garcia MD Unavailable [phone] Reason for Visit * Reason Onset Date Comments Med Refill 03/20/2025 Encounter Details Date Type Department Care Team (Late st Contact Info) Description 03/20/2025 Refill [facility] [address] [place] 110 [place] [address] Makayla Houston MA Type 2 diabetes mellitus without complication, without long-term current use of insulin Social History Tobacco Use Types Packs/Day Years [...] often do you attend chur ch or hinduism services? More than 4 times per year [...] Recorded Patient Health Questionnaire-2 Score 0 03/15/2025 [facility] Questionnaire Answer Date Recorded [...] place to sleep or slept in a detention (including now)? No 09/07/2023 Comments Unknown Sex and Gender Information Value Date Recorded Sex Assigned at Female 09/07/2023 11:06 PM EST Legal Sex Female 7:23 PM EDT Gender Identity Female 09/07/2023 11:06 PM EST Sexual Orientation Straight 09/07/2023 11 :06 PM EST documented as of this encounter Miscellaneous Notes * Telephone Encounter - Makayla Houston MA - 03/20/2025 3:21 PM EDT Hi there, this is Dahlia Valencia. I am a patient of [facility] and I was looking to get my mojo 15 mg. We fail to [facility]. However, it was sent to [facility] It is ridiculous, ridiculously expensive. It is like almost a thousand dollars and express script is about $50. However, it canceled my express [facility] prescription, it was described in 2 different locations. So I was wondering again if the are no 50 mg be sent to express my phone number [phone] in 1819. My birthday is 2075 and I am Judge Valencia, thank you. documented in this encounter Plan of Treatment Upcoming Encounters Date Type Department Care Team (Late st Contact Info) Description 04/02/2026 9:00 AM EDT Office Visit [facility] OB [address] [facility] [place] [address] Guero Moore, 102 [facility] [place] [address] documented as of this encounter Visit Diagnoses Diagnosis Type 2 diabetes mellitus without complication, without long-term current use of insulin documented in this encounter Care Teams Team Leader Relationship Specialty Start Date End Date Trae Garcia MD 112 [facility] 110 [place] [address] PCP - General Internal Medicine 03/24/23 Trae Garcia MD [address] [place] [facility] 110 [place] [address] PCP - Medical [place] Commercial 10/25/23 10/24/99 documented as of this encounter
--- OUTSIDE RECORDS SUMMARY | 2025-03-27 13:49 | XMS_ITS | Encounter Summary ---
Author Organization [facility] Address [address] [place] [address] Care Team Providers Care Vacuum Cleaner Assembler Name Role Phone Trae Garcia MD Primary Care Provider [phone] Trae Garcia MD Unavailable [phone] Encounter Details Date Type Department Care Team (Late st Contact Info) Description 10/20/2024 External Result Encounter [facility] External Department Unsolicited Provider, Generic External Data Social History Tobacco Use Types Packs/Day Years [...] often do you attend chur ch or catholic services? More than 4 times per year 09/07/2023 Do you belong to any clubs o r organizations such as baptist groups, unions, fraternal or athletic groups, or [...] care, and heating? Not very hard 09/07/2023 [facility] of Occupat ional Health [...] place to sleep or slept in a snf (including now)? No 09/07/2023 Comments Unknown Sex [...] EDT Office Visit [facility] OB [address] [facility] [place] [address] Guero Moore, DO [address] [place] [address] [place] [address] documented as of this encounter Procedures Procedure Name Priority Date/Time Associated Diagnosis Comments BI MAMMOGRAM SCREENING TOMOSYNTHESIS BILATERAL 10/20/2024 2:47 PM EST documented in this encounter Results * Bilateral screening mammogram with tomosynthesis (10/20/2024 [...] Daryn Lopez M.D.10/20/2024 3:12 PM Dictation Location: [facility] Transcribed By: [facility] 10/20/24 151 Dictated By: Daryn Lopez II, MD 10/20/24 1447 Signed By: <Electronically signed by Daryn Lopez II, MD in OV> 10/20/24 1512 Narrative 10/20/2024 3:15 PM EST [facility] [place] [address] Mammography Report Signed Patient: Helena Feliz MR# : [id number] : 1975 Acct:[id number] Age/Sex: 48 / F ADM Date: 10/20/24 Loc: [place] Room: Type: REG CLI Attending Dr: Referral Self Copies to: P[facility] [...] Procedure Note Daryn Lopez MD - 10/20/2024 [place] [id number] Mammography Report Signed Patient: Helena Feliz LMR# : [id number] : 1975Acct:[id number] Age/Sex: 48 / FADM Date: 10/20/24 Loc: [place] Room:Type: REG CLI Attending Dr: Referral Self Copies to: Pina [...] Daryn Lopez M.D.10/20/2024 3:12 PM Dictation Location: [facility] Transcribed By: [facility] 10/20/24 1512 Dictated By: Daryn Lopez II, MD 10/20/24 1447 Signed By: <Electronically signed by Daryn Lopez II, MD inO> 10/20/24 1512 us Generic External Data Provider IMG BI PROCEDURES Final Result documented in this encounter Visit Diagnoses Not on filedocumented in this encounter Care Teams Vacuum Cleaner Assembler Relationship Specialty Start Date End Date Trae Garcia MD [address] [facility] 110 [place] [address] PCP - General Internal Medicine 03/24/23 Trae Garcia MD [address] [facility] 110 [place] [address] PCP - Medical [place] Commercial 10/25/23 10/24/99 documented as of this encounter
--- OUTSIDE RECORDS SUMMARY | 2025-03-27 13:49 | XMS_ITS | Encounter Summary ---
Author Organization [facility] Address [address] [place] [address] Care Team Providers Care Portfolio Assistant Name Role Phone Trae Garcia MD Primary Care Provider [phone] Trae Garcia MD Unavailable [phone] Encounter Details Date Type Department Care Team (Latest Contact Info) Description 03/15/2025 Travel Social History Tobacco Use Types Packs/Day Years [...] How often do you attend chur or mormon services? More than 4 times per year 09/07/2023 Do you belong to any clubs o r organizations such as sikh groups, unions, fraternal or athletic groups, or [...] Recorded Patient Health Questionnaire-2 Score 0 03/15/2025 [facility]at ional [facility] - Occupational Stress Questionnaire Answer [...] place to sleep or slept in a half-way (including now)? No 09/07/2023 Comments Unknown Sex and Gender Information Value Date Recorded Sex Assigned at Female 09/07/2023 11:06 PM EST Legal Sex Female 7:23 PM EDT Gender Identity Female 09/07/2023 11:06 PM EST Sexual Orientation Straight 09/07/2023 11 :06 PM EST documented as of this encounter Functional Status * Over the [...] LP N documented as of this encounter Plan of Treatment Upcoming Encounters Date Type Department Care Team (Late st Contact Info) Description 04/02/2026 9:00 AM EDT Office Visit [facility] [address] [facility] [place] [address] Guero Moore, 102 [place] [address] documented as of this encounter Visit Diagnoses Not on filedocumented in this encounter Care Teams Portfolio Assistant Relationship Specialty Start Date End Date Trae Garcia MD [address] [facility] 110 [place] [address] PCP - General Internal Medicine 03/24/23 Trae Garcia MD 112 [facility] 110 [place] [address] PCP - Medical [place] Commercial 10/25/23 10/24/99 documented as of this encounter
--- OUTSIDE RECORDS SUMMARY | 2025-03-27 13:49 | XMS_ITS | Encounter Summary ---
Author Organization [facility] Address [address] [place] [address] Care Team Providers Care Substation Designer Name Role Phone Trae Garcia MD Primary Care Provider [phone] Trae Garcia MD Unavailable [phone] Encounter Details Date Type Department Care Team (Late st Contact Info) Description 03/06/2025 Abstract [facility] [address] [facility] 110 [place] [address] Trae Garcia MD [address] [facility] 110 [place], [place] [address] Social History Tobacco Use Types Packs/Day Years [...] often do you attend chur ch or lutheran services? More than 4 times per year 09/07/2023 Do you belong to any clubs o r organizations such as methodist groups, unions, fraternal or athletic groups, or [...] care, and heating? Not very hard 09/07/2023 [facility] of Occupat ional Health - Occupational [...] place to sleep or slept in a assisted (including now)? No 09/07/2023 Comments Unknown Sex [...] Office Visit [facility] [address] [facility] [place] [address] Guero Moore, DO [address] [facility] [place] [address] documented as of this encounter Visit Diagnoses Not on filedocumented in this encounter Care Teams Substation Designer Relationship Specialty Start Date End Date Trae Garcia MD [address] [facility] [address] [place] [address] PCP - General Internal Medicine 03/24/23 Trae Garcia MD [address] [facility] [address] [place] [id number] PCP - Medical [place] Commercial 10/25/23 10/24/99 documented as of this encounter
--- OUTSIDE RECORDS SUMMARY | 2025-03-27 13:49 | XMS_ITS | Encounter Summary ---
Author Organization [facility] Address [address] [place] [address] Care Team Providers Care Automatic Beading Lathe Operator Name Role Phone Trae Garcia MD Primary Care Provider [phone] Trae Garcia MD Unavailable [phone] Encounter Details Date Type Department Care Team (Late st Contact Info) Description 02/06/2025 Abstract [facility] [address] [facility] 110 [place] [address] Trae Garcia MD [address] [place] [facility] 110 [place], [place] [address] Social History Tobacco Use Types Packs/Day Years [...] often do you attend chur ch or yazidism services? More than 4 times per year 09/07/2023 Do you belong to any clubs o r organizations such as yazidism groups, unions, fraternal or athletic groups, or [...] care, and heating? Not very hard 09/07/2023 [facility] of Occupat ional Health - Occupational Stress [...] place to sleep or slept in a residential (including now)? No 09/07/2023 Comments Unknown Sex [...] EDT Office Visit [facility] OB [address] [facility] [place] [address] Guero Moore, DO [address] [facility] [place] [address] documented as of this encounter Visit Diagnoses Not on filedocumented in this encounter Care Teams Automatic Beading Lathe Operator Relationship Specialty Start Date End Date Trae Garcia MD [address] [facility] [address] [place] [address] PCP - General Internal Medicine 03/24/23 Trae Garcia MD [address] [facility] [address] [place] [id number] PCP - Medical [place] Commercial 10/25/23 10/24/99 documented as of this encounter
--- OUTSIDE RECORDS SUMMARY | 2025-03-27 13:49 | XMS_ITS | Encounter Summary ---
Author Organization [facility] Address [address] [place] [address] Care Team Providers Care Agile Developer Name Role Phone Trae Garcia MD Primary Care Provider [phone] Trae Garcia MD Unavailable [phone] Encounter Details Date Type Department Care Team (Late st Contact Info) Description 09/25/2024 Abstract [facility] [address] [facility] 110 [place] [address] Trae Garcia MD [address] [facility] 110 [place], [place] [address] Social History Tobacco Use Types Packs/Day Years [...] often do you attend chur ch or protestant services? More than 4 times per year 09/07/2023 Do you belong to any clubs o r organizations such as episcopalian groups, unions, fraternal or athletic groups, or [...] care, and heating? Not very hard 09/07/2023 [facility] of Occupat ional Health - [...] EDT Office Visit [facility] BCP OB [address] [facility] [place] [address] Guero Moore, DO [address] [facility] [place] [address] documented as of this encounter Visit Diagnoses Not on filedocumented in this encounter Care Teams Agile Developer Relationship Specialty Start Date End Date Trae Garcia MD [address] [facility] [address] [place] [address] PCP - General Internal Medicine 03/24/23 Trae Garcia MD [address] [facility] [address] [place] [id number] PCP - Medical [place] Commercial 10/25/23 10/24/99 documented as of this encounter
--- OUTSIDE RECORDS SUMMARY | 2025-03-27 13:49 | XMS_ITS | Encounter Summary ---
Author Organization [facility] Address [address] [place] [address] Care Team Providers Care Site Reliability Engineer Name Role Phone Trae Garcia MD Primary Care Provider [phone] Trae Garcia MD Unavailable [phone] Encounter Details Date Type Department Care Team (Late st Contact Info) Description 11/09/2023 Abstract [facility] [address] [facility] 110 [place] [address] Trae Garcia MD 112 [facility] 110 [place], [place] [address] Social History Tobacco Use Types Packs/Day Years [...] often do you attend chur ch or scientologist services? More than 4 times per year 09/07/2023 Do you belong to any clubs o r organizations such as buddhism groups, unions, fraternal or athletic groups, or [...] care, and heating? Not very hard 09/07/2023 [facility] of Occupat ional Health - [...] place to sleep or slept in a longterm (including now)? No 09/07/2023 Comments Unknown Sex [...] EDT Office Visit [facility] OB [address] [facility] [place] [address] Guero Moore, DO [address] [facility] [place] [address] documented as of this encounter Visit Diagnoses Not on filedocumented in this encounter Care Teams Site Reliability Engineer Relationship Specialty Start Date End Date Trae Garcia MD [address] [facility] [address] [place] [address] PCP - General Internal Medicine 03/24/23 Trae Garcia MD [address] [facility] [address] [place] [address] PCP - Medical [place] Commercial 10/25/23 10/24/99 documented as of this encounter
--- OUTSIDE RECORDS SUMMARY | 2025-03-27 13:49 | XMS_ITS | Encounter Summary ---
Author Organization [facility] Address [address] [facility] [place] [address] Care Team Providers Care Commercial Relationship Manager Name Role Phone Trae Garcia MD Primary Care Provider [phone] Pina Bernard Unavailable [phone] Trae Garcia MD Unavailable [phone] Encounter Details Date Type Department Care Team (Late st Contact Info) Description 06/30/2023 Abstract [facility] [address] [facility] 110 [place] [address] Trae Garcia MD 112 [facility] 110 [place], [place] [address] Social History Tobacco Use Types Packs/Day Years Used Date Smoking Tobacco: Never Assessed Comments Unknown Sex and Gender Information Value [...] BCP OB [address] [place] [address] Guero Moore, DO [address] [place] [address] documented as of this encounter Visit Diagnoses Not on filedocumented in this encounter Care Teams Commercial Relationship Manager Relationship Specialty Start Date End Date Trae Garcia MD [address] [facility] 110 [place] [address] PCP - General Internal Medicine 03/24/23 Pina Bernard PA [address] [facility] 110 [place] [address] PCP - Medical [place] Commercial 03/25/23 10/24/23 Trae Garcia MD [address] [facility] 110 [place] [address] PCP - Medical [place] [employer] 10/25/23 10/24/99 documented as of this encounter
--- OUTSIDE RECORDS SUMMARY | 2025-03-27 13:49 | XMS_ITS | Encounter Summary ---
Author Organization [facility] Address [address] [place] [address] Care Team Providers Care Answering Service Telephone Operator Name Role Phone Trae Garcia MD Primary Care Provider [phone] Trae Garcia MD Unavailable [phone] Encounter Details Date Type Department Care Team (Late st Contact Info) Description 03/15/2025 Bamboo flowsheet [facility] [address] [place] 110 [place] [address] Pina Bernard PA [address] [facility] 110 [place], [place] [address] Social History Tobacco Use Types Packs/Day Years [...] often do you attend chur ch or quaker services? More than 4 times per year 09/07/2023 Do you belong to any clubs o r organizations such as confucianist groups, unions, fraternal or athletic groups, or [...] Recorded Patient Health Questionnaire-2 Score 0 03/15/2025 [facility] Questionnaire Answer Date [...] the money to buy more. Never true 11/14/20 23 Within the past 12 months, t [...] place to sleep or slept in a group home (including now)? No 09/07/2023 Comments Unknown Sex [...] 04/02/2026 9:00 AM EDT Office Visit [facility] [address] [facility] [place] [address] Guero Moore, [address] [facility] [address] [place], [place] [address] documented as of this encounter Visit Diagnoses Not on filedocumented in this encounter Care Teams Answering Service Telephone Operator Relationship Specialty Start Date End Date Trae Garcia MD [address] [facility] [address] [place] [address] PCP - General Internal Medicine 03/24/23 Trae Garcia MD [address] [facility] [address] [place] [phone] PCP - Medical [place] Commercial 10/25/23 10/24/99 documented as of this encounter
--- OUTSIDE RECORDS SUMMARY | 2025-03-27 13:50 | XMS_ITS | Encounter Summary ---
Author Organization [facility] Address [address] [place] [address] Care Team Providers Care Bone Plant Supervisor Name Role Phone Trae Garcia MD Primary Care Provider [phone] Pina Bernard Unavailable [phone] Trae Garcia MD Unavailable [phone] Encounter Details Date Type Department Care Team (Late Contact Info) Description 06/04/2023 Abstract [facility] [address] [facility] 110 [place] [address] Pina Bernard PA [address] [facility] 110 [place], [place] [address] Social History Tobacco Use Types Packs/Day Years Used Date Smoking Tobacco: Never Smokeless Tobacco: Never Tobacco Cessation:Counseling Given: Not Answered Alcohol Use Standard Drinks/Week Comments Not Currently 0 (1 standard drink = 0.6 oz pure alcohol) Caffeine intake: 2-3 cups pe day coffee, soda Comments Unknown Sex and Gender Information Value Date Recorded Sex Assigned at Female 09/07/2023 11:06 PM EST Legal Sex Female 7:23 PM EDT Gender Identity Female 09/07/2023 11:06 PM EST Sexual Orientation Straight 09/07/2023 11 :06 PM EST documented as of this encounter Plan of Treatment Upcoming Encounters Date Type Department Care Team (Late Contact Info) Description 04/02/2026 9:00 AM EDT Office Visit [facility] B[facility] OB [address] [place], [place] [address] [place] [address] Guero Moore, [address] [place] [address] documented as of this encounter Visit Diagnoses Not on filedocumented in this encounter Care Teams Bone Plant Supervisor Relationship Specialty Start Date End Date Trae Garcia MD [address] [place] 110 [place] [address] PCP - General Internal Medicine 03/24/23 Pina Bernard PA [address] [place] 110 [place], [place] [phone] PCP - Medical [place] Commercial 03/25/23 10/24/23 Trae Garcia MD [address] [facility] 110 [place] [address] PCP - Medical [place] Commercial 10/25/23 10/24/99 documented as of this encounter
--- OUTSIDE RECORDS SUMMARY | 2025-03-27 13:50 | XMS_ITS | Encounter Summary ---
Author Organization [facility] Address [address] [facility] [place] [address] Care Team Providers Care Body Technician/Painter Name Role Phone Trae Garcia MD Primary Care Provider [phone] Pina Bernard Unavailable [phone] Trae Garcia MD Unavailable [phone] Encounter Details Date Type Department Care Team (Late st Contact Info) Description 03/24/2023 Abstract [facility] [address] [place] [id number] Tiffany Villegas LPN [address] [place], [place] [id number] Social History Tobacco Use Types Packs/Day Years Used Date Smoking Tobacco: Never Smokeless Tobacco: Never Alcohol Use Standard Drinks/Week Comments Not Currently 0 (1 standard drink = 0.6 oz pur e alcohol) Comments Unknown Sex and Gender Information Value Date Recorded Sex Assigned at Female 09/07/2023 11:06 PM EST Legal Sex Female 7:23 PM EDT Gender Identity Female 09/07/2023 11:06 PM EST Sexual Orientation Straight 09/07/2023 11 :06 PM EST COVID-19 Exposure Response Date Recorded In the last 10 days, have yo u been in contact with someone who was confirmed or suspected to have Coronavirus/COVID-19? No / Unsure 03/10/2023 2:09 PM EDT documented as of this encounter Plan of Treatment Upcoming Encounters Date Type Department Care Team (Late Contact Info) Description 04/02/2026 9:00 AM EDT Office Visit [facility] [address] [facility] [place] [place] [address] Guero Moore DO [address] [facility] [address] [place] [place], [place] [id number] documented as of this encounter Visit Diagnoses Not on filedocumented in this encounter Care Teams Body Technician/Painter Relationship Specialty Start Date End Date Trae Garcia MD [address] [facility] [address] [place] [address] PCP - General Internal Medicine 03/24/23 Pina Bernard PA [address] [facility] [address] [place] [address] PCP - Medical [place] [employer] 03/25/23 10/24/23 Trae Garcia MD [address] [facility] [address] [place] [address] PCP - Medical [place] [employer] 10/25/23 10/24/99 documented as of this encounter
--- OUTSIDE RECORDS SUMMARY | 2025-03-27 13:50 | XMS_ITS | Encounter Summary ---
Author Organization [facility] Address [address] [place] [address] Care Team Providers Care Materials Handling Coordinator Name Role Phone Trae Garcia MD Primary Care Provider [phone] Trae Garcia MD Unavailable Encounter Details Date Type Department Care Team (Late st Contact Info) Description 07/10/2024 Abstract [facility] [address] [facility] [address] [place] [address] Trae Garcia MD [address] [facility] 110 [place], [place] [id number] Social History Tobacco Use Types Packs/Day Years [...] often do you attend chur ch or mandaeism services? More than 4 times per year 09/07/2023 Do you belong to any clubs o r organizations such as advent groups, unions, fraternal or athletic groups, or [...] care, and heating? Not very hard 09/07/2023 [facility] - [...] EDT Office Visit [facility] [address] [facility] [address] [place] [address] Guero Moore, DO [address] [facility] [place] [address] documented as of this encounter Visit Diagnoses Not on filedocumented in this encounter Care Teams Materials Handling Coordinator Relationship Specialty Start Date End Date Trae Garcia MD [address] [facility] [address] [place] [address] PCP - General Internal Medicine 03/24/23 Trae Garcia MD [address] [facility] [address] [place] [id number] PCP - Medical [place] [employer] 10/25/23 10/24/99 documented as of this encounter
--- OUTSIDE RECORDS SUMMARY | 2025-03-27 13:50 | XMS_ITS | Encounter Summary ---
Author Organization [facility] Address [address] [place] [address] Care Team Providers Care Gusset Folder Name Role Phone Trae Garcia MD Primary Care Provider [phone] Trae Garcia MD Unavailable [phone] Encounter Details Date Type Department Care Team (Late st Contact Info) Description 07/24/2024 Abstract [facility] [address] [facility] 110 [place] [address] Trae Garcia MD [address] [facility] 110 [place], [place] [id number] Social History Tobacco Use Types Packs/Day Years [...] often do you attend chur ch or orthodox services? More than 4 times per year 09/07/2023 Do you belong to any clubs o r organizations such as pentecostalism groups, unions, fraternal or athletic groups, or [...] care, and heating? Not very hard 09/07/2023 [facility] - Occupational [...] place to sleep or slept in a long-term (including now)? No 09/07/2023 Comments Unknown Sex [...] Office Visit [facility] [address] [address] Guero Moore, DO [address] [facility] [place] [address] documented as of this encounter Visit Diagnoses Not on filedocumented in this encounter Care Teams [place] Folder Relationship Specialty Start Date End Date Trae Garcia MD [address] [facility] [address] [place] [address] PCP - General Internal Medicine 03/24/23 Trae Garcia MD [address] [facility] [address] [place] [id number] PCP - Medical [place] [employer] 10/25/23 10/24/99 documented as of this encounter
--- OUTSIDE RECORDS SUMMARY | 2025-03-27 13:50 | XMS_ITS | Encounter Summary ---
Author Organization [facility] Address [address] [place] [address] Care Team Providers Care Cut Roll Machine Operator Name Role Phone Trae Garcia MD Primary Care Provider [phone] Trae Garcia MD Unavailable [phone] Encounter Details Date Type Department Care Team (Late st Contact Info) Description 03/14/2024 Abstract [facility] [address] [facility] [address] [place] [address] Trae Garcia MD [address] [facility] 110 [place], [place] [id number] Social History Tobacco Use Types Packs/Day Years [...] often do you attend chur ch or holiness services? More than 4 times per year 09/07/2023 Do you belong to any clubs o r organizations such as hinduism groups, unions, fraternal or athletic groups, or [...] care, and heating? Not very hard 09/07/2023 [facility] - Occupational [...] Office Visit [facility] [address] [facility] [place] [place] [address] Guero Moore, DO [address] [facility] [place] [address] documented as of this encounter Visit Diagnoses Not on filedocumented in this encounter Care Teams Cut Roll Machine Operator Relationship Specialty Start Date End Date Trae Garcia MD [address] [facility] [address] [place] [address] PCP - General Internal Medicine 03/24/23 Trae Garcia MD [address] [facility] [address] [place] [id number] PCP - Medical [place] [employer] 10/25/23 10/24/99 documented as of this encounter
[2025-03-30 10:09] LABS: Age Gdln ACOG Testing Note (.); HPV Aptima Negative (Negative); IGP, Aptima HPV, rfx 16/18,45 Note (.)
== END 2025-03-27 13:46 | disposition home or self-care (01) ==
LOC: LAB 13:45
PROVIDERS: PCP Physician Assistant; Visit Provider Obstetrics & Gynecology
DX: Z01.419 Encounter for gynecological examination (general) (routine) without abnormal findings (principal)
CPT/HCPCS: 87624; 88175